=== PATIENT | female | born 1990 | race Caucasian/White ===

== ENCOUNTER → 2017-03-10 | Outpatient (CLI) | payer OTHER ==
[2016-01-28 19:59] VITALS: BP 101/53
--- NOTE | 2017-03-10 15:28 | KCIC ---
X-ray lumbar spine three views Indication: Low back pain. Curvature and alignment is normal. The vertebral body heights are well maintained. The disc spaces are preserved. No fracture or subluxation is identified. Impression: No acute bony abnormality is detected. Sacrum and coccyx: Sacrococcygeal alignment appears normal. No fracture is seen. The sacral arcuate lines are intact. Impression: No acute abnormality is detected. Electronically signed by: Jamar Queen MD (Mar 10, 2017 15:27:17)
== END | disposition home or self-care (01) ==
LOC: KCIC 14:25
PROVIDERS: ATTEND Nurse Practitioner Family
DX: M54.5 Low back pain (principal); M53.3 Sacrococcygeal disorders, not elsewhere classified
CPT/HCPCS: 72100; 72220